=== PATIENT | female | born 1985 | race Caucasian/White ===

== ENCOUNTER → 2018-01-02 18:46 | Outpatient (CLI) | payer BC, SELFPAY ==
[2018-01-08 09:08] LABS: HPV Reflexed? NOT INDICATED
== END ==
PROVIDERS: Visit Provider Obstetrics & Gynecology
DX: Z12.4 Encounter for screening for malignant neoplasm of cervix (principal); Z12.72 Encounter for screening for malignant neoplasm of vagina
CPT/HCPCS: 88175; G0145

== ENCOUNTER → 2019-02-19 | Outpatient (CLI) | payer BC, SELFPAY ==
[2016-09-08 01:13] VITALS: BMI 29.3
[2019-02-24 13:42] LABS: HPV APTIMA, High Risk Negative (Negative)
== END | disposition home or self-care (01) ==
PROVIDERS: Referring Provider Obstetrics & Gynecology; Visit Provider Obstetrics & Gynecology
DX: Z12.4 Encounter for screening for malignant neoplasm of cervix (principal)
CPT/HCPCS: 87624; 88175; G0145

== ENCOUNTER → 2022-05-19 | Outpatient (CLI) | payer OTHER, SELFPAY ==
[2022-05-19 13:22] LABS: Free T3 2.7 pg/mL (2.18-3.98); T4 Free Direct 0.89 ng/dL (0.76-1.46); Thyroid Stim Hormone (TSH) 4.34 uIU/mL (0.358-3.74)
[2022-05-22 22:06] LABS: Thyroid Peroxidase AB 13 IU/mL (0-34)
[2022-05-23 16:28] LABS: Thyroglobulin Antibody < 1.0 IU/mL (0.0-0.9)
[2022-05-27 20:59] LABS: HPV APTIMA, High Risk Negative (Negative)
== END | disposition home or self-care (01) ==
PROVIDERS: Visit Provider Student in an Organized Health Care Education/Training Program
DX: Z12.4 Encounter for screening for malignant neoplasm of cervix (principal)
CPT/HCPCS: 36415; 84439; 84443; 84481; 86376; 86800; 87624; 88175; G0145